=== PATIENT | female | born 1990 ===

== ENCOUNTER 2018-12-09 10:01 | Observation (INO) | payer MEDICAID ==
[2018-12-09 10:08] VITALS: BMI 26.7
--- NOTE | 2018-12-09 11:35 | ED PDOC ---
HPI: Female Pain Time Seen by Provider: 12/09/18 10:27 Chief Complaint (Nursing): Female Genitourinary Chief Complaint (Provider): Vaginal bleeding History Per: Patient History/Exam Limitations: no limitations Onset/Duration Of Symptoms: Days (3) Current Symptoms Are (Timing): Still Present Quality Of Discomfort: Cramping Additional Complaint(s): 28yo female, EGA of 8 weeks (LMP 09/11/18), comes to ER reporting vaginal bleeding x 3 days. She states initially the bleeding was mild, but today she had heavy bleeding with large clots and crampy lower abdominal pain. She had a recent US on 12/06 which indicated an IUP at 7wks5d but no heart rate; patient's Beta-HCG at that time was 97903. She denies any weakness, lightheadedness, and offers no additional complaints. PMD: [facility] OB: [facility] Abnormal Vaginal Bleeding: Yes Last Menstral Period: 09/11/18 : 5 Para: 3 Miscarriage: 1 Past Medical History Reviewed: Historical Data, Nursing Documentation, Vital Signs Vital Signs: Last Vital Signs Temp 97.2 F L 12/09/18 10:06 Pulse 86 12/09/18 10:06 Resp 18 12/09/18 10:06 BP 130/84 12/09/18 10:06 Pulse Ox 100 12/09/18 10:06 - Medical History PMH: No Chronic Diseases - Surgical History Surgical History: No Surg Hx - Family History Family History: States: No Known Family Hx - Living Arrangements Living Arrangements: With Family - Home Medications Home Medications: Ambulatory Orders Medication Instructions Recorded Multivit/Folic Acid/I 1 tab PO DAILY 12/09/18 [] - Allergies Allergies/Adverse Reactions: Allergies Allergy/AdvReac Type Severity Reaction Status Date / Time No Known Allergies Allergy Verified 08/10/16 10:51 Review of Systems ROS Statement: Except As Marked, All Systems Reviewed And Found Negative Cardiovascular: Negative for: Light Headedness Respiratory: Negative for: Shortness of Breath Gastrointestinal: Positive for: Abdominal Pain (lower abdominal pain) Genitourinary Female: Positive for: Vaginal Discharge, Vaginal Bleeding Neurological: Negative for: Dizziness Physical Exam - Reviewed Nursing Documentation Reviewed: Yes Vital Signs Reviewed: Yes - Physical Exam Appears: Positive for: Non-toxic, No Acute Distress Head Exam: Positive for: ATRAUMATIC, NORMAL INSPECTION, NORMOCEPHALIC Skin: Positive for: Normal Color, Warm, Dry. Negative for: Pallor Eye Exam: Positive for: Normal appearance, EOMI, PERRL Neck: Positive for: Normal, Supple Cardiovascular/Chest: Positive for: Regular Rate, Rhythm Respiratory: Positive for: Normal Breath Sounds. Negative for: Wheezing Gastrointestinal/Abdominal: Positive for: Normal Exam, Soft. Negative for: Tenderness Pelvic Exam: Positive for: Blood (moderate blood with large clots in vaginal vault) Back: Positive for: Normal Inspection. Negative for: L CVA Tenderness, R CVA Tenderness Extremity: Positive for: Normal ROM. Negative for: Pedal Edema Neurologic/Psych: Positive for: Alert, Oriented. Negative for: Motor/Sensory Deficits - Laboratory Results Result Diagrams: 12/09/18 13:24 12/09/18 11:30 - ECG O2 Sat by Pulse Oximetry: 100 (RA) Pulse Ox Interpretation: Normal Medical Decision Making Medical Decision Making: Impression: 8wks female with heavy vaginal bleeding; likely miscarriage Plan: -- Labs -- US abdomen 1250 AUD[employer]IS[employer] TECH called while patient at ; Dr. Hercules and myself present in room. Per US tech, patient went to the bathroom, ambulated by herself, passed a large clot and subsequently syncopized while in the bathroom. Patient given IV fluids; repeat blood pressure noted to be 107/65 HR in 80's. Repeat cbc sent. Patient noted to have hematoma on upper center forehead; CT head w/o contrast ordered. Case d/w powder worker team who will evaluate bedside. Pt. feeling better, awake, alert, HR 80s, with bp 105/65. Repeat hgb noted, 1 unit RBC ordered, consent obtained. D/w Ob, will admit pt. Pt. and comfortable with plan. Scribe Attestation: Documented by Shannon Soto acting as a scribe for CRISTO Darden Provider Attestation: All medical record entries made by the Scribe were at my direction and personally dictated by me. I have reviewed the chart and agree that the record accurately reflects my personal performance of the history, physical exam, medical decision making, and the department course for this patient. I have also personally directed, reviewed, and agree with the discharge instructions and disposition. Disposition - Clinical Impression Clinical Impression: Miscarriage, Anemia - Patient ED Disposition Is Patient to be Admitted: Yes Counseled Patient/Family Regarding: Studies Performed, Diagnosis - Disposition Disposition Time: 15:00 Condition: STABLE
[2018-12-09] MEDS: Sodium Chloride 0.9% 1,000 ML IV SCH ×2 (11:46→15:28)
[2018-12-09 11:58] LABS: BASO % 0.3 % (0.0-2.0); EOS # 0.1 K/uL (0.0-0.7); EOS % 1.1 % (0.0-4.0); HEMOGLOBIN 11.7 g/dL (12.0-16.0); LYMPH # 1.2 K/uL (1.0-4.3); LYMPH % 15.4 % (20.0-40.0); MEAN CELL VOLUME 87.9 fl (81.0-99.0); MEAN CORPUSCULAR HEMOGLOBIN 29.7 pg (27.0-31.0); MEAN CORPUSCULAR HGB CONC 33.7 g/dL (33.0-37.0); MEAN PLATELET VOLUME 8.6 fl (7.2-11.7); MONO # 0.4 K/uL (0.0-0.8); MONO % 4.7 % (0.0-10.0); NEUT # 6.3 K/uL (1.8-7.0); NEUT % 78.5 % (50.0-75.0); NRBC % 0.1 % (0.0-0.0); RBC 3.94 Mil/uL (3.80-5.20); RED CELL DISTRIBUTION WIDTH 12.8 % (11.5-14.5); WHITE BLOOD COUNT 8.1 K/uL (4.8-10.8)
[2018-12-09 12:03] LABS: ALB/GLOB RATIO 1.4 (1.0-2.1); ALBUMIN 4.7 g/dL (3.5-5.0); ALT/SGPT 25 U/L (9-52); AST/SGOT 26 U/L (14-36); BLOOD UREA NITROGEN 10 mg/dl (7-17); CALCIUM 9.8 mg/dL (8.4-10.2); GFR NON-AFRICAN AMERICAN > 60; URINE BACTERIA RARE (<OCC); URINE BILIRUBIN NEGATIVE (NEGATIVE); URINE BLOOD LARGE (NEGATIVE); URINE CLARITY CLOUDY (Clear); URINE COLOR RED (YELLOW); URINE GLUCOSE (UA) NEG (NEGATIVE); URINE LEUKOCYTE ESTERASE NEG Leu/uL (Negative); URINE PROTEIN 100 mg/dL (NEGATIVE); URINE UROBILINOGEN 0.2-1.0 mg/dL (0.2-1.0)
[2018-12-09] MEDS ORDERED: Sodium Chloride 0.9% 1,000 ML IV SCH (13:15)
[2018-12-09] MEDS ORDERED: Sodium Chloride 0.9% 1,000 ML IV ONE (13:45)
--- NOTE | 2018-12-09 13:48 | CT ---
Date of service: 12/09/2018 PROCEDURE: CT HEAD WITHOUT CONTRAST. HISTORY: head trauma COMPARISON: None available. TECHNIQUE: Axial computed tomography images were obtained through the head/brain without intravenous contrast. Supplemental Coronal and Sagittal projections created and reviewed. Radiation dose: Total exam DLP = 756.24 mGy-cm. This CT exam was performed using one or more of the following dose reduction techniques: Automated exposure control, adjustment of the mA and/or kV according to patient size, and/or use of iterative reconstruction technique. FINDINGS: HEMORRHAGE: No intracranial hemorrhage. BRAIN: No mass effect or edema. No atrophy or chronic microvascular ischemic changes. VENTRICLES: Unremarkable. No hydrocephalus. CALVARIUM: Unremarkable. PARANASAL SINUSES: Unremarkable as visualized. No significant inflammatory changes. MASTOID AIR CELLS: Unremarkable as visualized. No inflammatory changes. OTHER FINDINGS: None. IMPRESSION: No acute intracranial abnormalities. No significant findings to account for the clinical presentation.
[2018-12-09 14:07] LABS: HEMOGLOBIN 8.7 g/dL (12.0-16.0); MEAN CELL VOLUME 88.3 fl (81.0-99.0); MEAN CORPUSCULAR HEMOGLOBIN 29.1 pg (27.0-31.0); RBC 2.97 Mil/uL (3.80-5.20); RED CELL DISTRIBUTION WIDTH 12.6 % (11.5-14.5); WHITE BLOOD COUNT 13.5 K/uL (4.8-10.8)
--- NOTE | 2018-12-09 15:54 | CP.PCM.HP ---
History of Present Illness - History of Present Illness History of Present Illness: 28-year-old presents at 12.6 weeks EGA (LMP 09/11/18) with vaginal bleeding secondary to spontaneous . She began spotting 1 day prior and heavily bleeding this morning, 7 hours prior to presentation. She has had 2 previous spontaneous 1st trimester abortions before her two children (, FT, no complications). She admits to feeling weak, dizzy and fatigued but denies palpitations, nausea, and vomiting. OBGYN: Kim Sr PMH: "low bladder" as per patient Meds: PNV Allergies: denies Social: denies OBHx: 2 x 1st tri SAB followed by 3 x , FT, no complications FHx: denies labs: wnl as per patient, no results available ED Course: TVUS: no evidence of intrauterine gestation, complex cyst/mass in left adnexa bHC CBC: H/H 11.7/34.7; 8.7/26.[address] (due to syncope during U/S, [employer]): wnl Present on Admission - Present on Admission Any Indicators Present on Admission: No Review of Systems - Review of Systems Review of Systems: All other systems reviewed and negative unless noted in HPI. Past Patient History - Past Social History Smoking Status: Never Smoked - CARDIAC Hx Cardiac Disorders: No - PULMONARY Hx Respiratory Disorders: No - NEUROLOGICAL Hx Neurological Disorder: No - HEENT Hx HEENT Problems: No - RENAL Hx Chronic Kidney Disease: No - ENDOCRINE/METABOLIC Hx Endocrine Disorders: No - HEMATOLOGICAL/ONCOLOGICAL Hx Blood Disorders: No - INTEGUMENTARY Hx Dermatological Problems: No - MUSCULOSKELETAL/RHEUMATOLOGICAL Hx Musculoskeletal Disorders: No - GENITOURINARY/GYNECOLOGICAL Hx Genitourinary Disorders: No - PSYCHIATRIC Hx Psychophysiologic Disorder: No - SURGICAL HISTORY Hx Surgeries: No - ANESTHESIA Hx Anesthesia: No Meds Allergies/Adverse Reactions: Allergies Allergy/AdvReac Type Severity Reaction Status Date / Time Iodine and Iodide Containing Allergy RASH Verified 12/09/18 18:10 Produc Physical Exam - Constitutional Appears: Non-toxic, No Acute Distress - Head Exam Head Exam: NORMAL INSPECTION - Eye Exam Eye Exam: Normal appearance - ENT Exam ENT Exam: Mucous Membranes Dry - Respiratory Exam Respiratory Exam: NORMAL BREATHING PATTERN. absent: Respiratory Distress - GI/Abdominal Exam GI & Abdominal Exam: Normal Bowel Sounds, Soft. absent: Firm, Guarding - Psychiatric Exam Psychiatric exam: Normal Affect, Normal Mood - Skin Skin Exam: Dry, Intact, Pallor, Warm Results - Vital Signs Recent Vital Signs: Last Vital Signs Temp 97.2 F L 12/09/18 10:06 Pulse 86 12/09/18 13:37 Resp 20 12/09/18 13:37 BP 108/61 12/09/18 13:37 Pulse Ox 100 12/09/18 15:44 - Labs Result Diagrams: 12/09/18 13:24 12/09/18 11:30 Labs: Laboratory Results - last 24 hr 12/09/18 12/09/18 12/09/18 11:30 11:30 11:30 WBC 8.1 RBC 3.94 Hgb 11.7 L Hct 34.7 MCV 87.9 MCH 29.7 MCHC 33.7 RDW 12.8 Plt Count 261 MPV 8.6 Neut % (Auto) 78.5 H Lymph % (Auto) 15.4 L [place] % (Auto) 4.7 Eos % (Auto) 1.1 Baso % (Auto) 0.3 Neut # (Auto) 6.3 Lymph # (Auto) 1.2 [place] # (Auto) 0.4 Eos # (Auto) 0.1 Baso # (Auto) 0.0 Sodium 136 Potassium 3.4 L Chloride 98 Carbon Dioxide 23 Anion Gap 18 BUN 10 Creatinine 0.6 L Est GFR ( Amer) > 60 Est GFR (Non-Af Amer) > 60 POC Glucose (mg/dL) Random Glucose 105 Calcium 9.8 Total Bilirubin 0.5 AST 26 ALT 25 Alkaline Phosphatase 67 Total Protein 7.9 Albumin 4.7 Globulin 3.3 Albumin/Globulin Ratio 1.4 Beta HCG, Quant 17634.00 Urine Color Urine Clarity Urine pH Ur Specific [place] Urine Protein Urine Glucose (UA) Urine Ketones Urine Blood Urine Nitrate Urine Bilirubin Urine Urobilinogen Ur Leukocyte Esterase Urine RBC (Auto) Urine Microscopic WBC Urine Bacteria Blood Type A POSITIVE Blood Type Confirm Antibody Screen Negative Crossmatch See Detail BBK History Checked No verified bt 12/09/18 12/09/18 12/09/18 11:30 12:00 12:57 WBC RBC Hgb Hct MCV MCH MCHC RDW Plt Count MPV Neut % (Auto) Lymph % (Auto) [place] % (Auto) Eos % (Auto) Baso % (Auto) Neut # (Auto) Lymph # (Auto) [place] # (Auto) Eos # (Auto) Baso # (Auto) Sodium Potassium Chloride Carbon Dioxide Anion Gap BUN Creatinine Est GFR ( Amer) Est GFR (Non-Af Amer) POC Glucose (mg/dL) 131 H Random Glucose Calcium Total Bilirubin AST ALT Alkaline Phosphatase Total Protein Albumin Globulin Albumin/Globulin Ratio Beta HCG, Quant Urine Color Red Urine Clarity Cloudy Urine pH 6.0 Ur Specific [place] 1.029 Urine Protein 100 Urine Glucose (UA) Neg Urine Ketones Trace Urine Blood Large Urine Nitrate Negative Urine Bilirubin Negative Urine Urobilinogen 0.2-1.0 Ur Leukocyte Esterase Neg Urine RBC (Auto) 7303 H Urine Microscopic WBC 10 H Urine Bacteria Rare Blood Type Blood Type Confirm A POSITIVE Antibody Screen Crossmatch BBK History Checked 12/09/18 13:24 WBC 13.5 H D RBC 2.97 L Hgb 8.7 L D Hct 26.2 L MCV 88.3 MCH 29.1 MCHC 33.0 RDW 12.6 Plt Count 252 MPV Neut % (Auto) Lymph % (Auto) [place] % (Auto) Eos % (Auto) Baso % (Auto) Neut # (Auto) Lymph # (Auto) [place] # (Auto) Eos # (Auto) Baso # (Auto) Sodium Potassium Chloride Carbon Dioxide Anion Gap BUN Creatinine Est GFR ( Amer) Est GFR (Non-Af Amer) POC Glucose (mg/dL) Random Glucose Calcium Total Bilirubin AST ALT Alkaline Phosphatase Total Protein Albumin Globulin Albumin/Globulin Ratio Beta HCG, Quant Urine Color Urine Clarity Urine pH Ur Specific [place] Urine Protein Urine Glucose (UA) Urine Ketones Urine Blood Urine Nitrate Urine Bilirubin Urine Urobilinogen Ur Leukocyte Esterase Urine RBC (Auto) Urine Microscopic WBC Urine Bacteria Blood Type Blood Type Confirm Antibody Screen Crossmatch BBK History Checked Assessment & Plan - Assessment and Plan (Free Text) Assessment: 28-year-old presents at 12.6 weeks EGA (LMP 09/11/18) with vaginal bleeding secondary to spontaneous . Plan: 1. Spontaneous -Admit to tele, monitor vitals -NPO except medications -Products of conception removed manually in ED by Dr Guy -Cervix closed, no active bleeding s/p removal -1 bag PRBCs -IVF: LR @ 125 mls/hr -H/H 8.7/26.2 -f/u CBC 2 hours post-transfusion -Acetaminophen PRN for pain 2. DVT Prophylaxis -SCDs continuous, bilateral
[2018-12-09] MEDS: Lactated Ringer's 1,000 ML IV SCH (16:15)
--- NOTE | 2018-12-09 16:49 | US ---
Date of service: 12/09/2018 HISTORY: preg bleeding COMPARISON: None available. TECHNIQUE: Transvaginal only. Real -time technique with 2D, duplex and color Doppler FINDINGS: UTERUS: Measures 5.4 x 6.5 x 10.4 cm. No fibroid or other mass lesion seen. ENDOMETRIUM: Measures 13.6 mm in diameter. No ultrasound findings to suggest gestational sac, fluid, debris, mass or polyp or other pathologic process within the endometrium. CERVIX: Heterogeneous cervix obscuring the cervical canal. There may be fluid/debris within the cervix. RIGHT OVARY: Measures 1.3 x 1.4 x 2.2 cm. No solid mass. Normal flow. LEFT OVARY: Measures 2.2 x 4.1 x 1.6 cm. Well-circumscribed isoechoic mass possibly complex cyst measures 1.4 x 1.4 x 1.9 cm. Normal flow. FREE FLUID: No significant free fluid noted. OTHER FINDINGS: None. IMPRESSION: No evidence of intrauterine gestation. Complex cyst/mass in the left adnexa.
[2018-12-09 20:47] LABS: HEMOGLOBIN 9.1 g/dL (12.0-16.0); MEAN CELL VOLUME 88.9 fl (81.0-99.0); MEAN CORPUSCULAR HEMOGLOBIN 29.8 pg (27.0-31.0); MEAN CORPUSCULAR HGB CONC 33.5 g/dL (33.0-37.0); RBC 3.07 Mil/uL (3.80-5.20); RED CELL DISTRIBUTION WIDTH 12.6 % (11.5-14.5); WHITE BLOOD COUNT 7.7 K/uL (4.8-10.8)
--- NOTE | 2018-12-09 21:50 | CARD ---
APPROVED REPORT Date of service: 12/09/2018 EKG Measurement Heart [id number] <Conclusion> Normal sinus rhythm Normal ECG
[2018-12-10] VITALS: RESP 18
[2018-12-10] MEDS: Lactated Ringer's 1,000 ML IV SCH ×2 (00:28→08:28)
[2018-12-10 07:58] VITALS: O2SAT 100
--- NOTE | 2018-12-10 11:10 | CP.PCM.PN ---
Subjective - Date & Time of Evaluation Date of Evaluation: 12/10/18 Time of Evaluation: 11:06 - Subjective Subjective: Pt is a 28 yo female s/p spontaneous miscarriage with symptomatic anemia. Patient reports bleeding has improved, denies weakness, difficulty ambulating, no CP/SOB/N/V, tolerating PO diet Objective - Vital Signs/Intake and Output Vital Signs (last 24 hours): Temp Pulse Resp BP Pulse Ox 98.5 F 69 18 103/64 100 12/10/18 08:46 12/10/18 08:46 12/10/18 08:46 12/10/18 08:46 12/10/18 08:46 Intake and Output: 12/10/18 12/10/18 06:59 18:59 Intake Total 3875 Balance 3875 - Medications Medications: Current Medications Acetaminophen (Tylenol 325mg Tab) 650 mg PO Q6 PRN PRN Reason: Pain, Mild (1-3) Last Admin: 12/10/18 05:16 Dose: 650 mg Lactated Ringer's (Lactated Ringer's) 1,000 mls @ 125 mls/hr IV .Q8H CHRIS Last Admin: 12/10/18 08:28 Dose: 125 mls/hr - Labs Labs: 12/09/18 20:40 12/09/18 11:30 - Constitutional Appears: Well, No Acute Distress - Respiratory Exam Respiratory Exam: NORMAL BREATHING PATTERN - Cardiovascular Exam Cardiovascular Exam: REGULAR RHYTHM - GI/Abdominal Exam GI & Abdominal Exam: Soft, Normal Bowel Sounds - Extremities Exam Extremities Exam: Normal Inspection Assessment and Plan - Assessment and Plan (Free Text) Plan: A/P 28 yo spontaneous miscarriage and symptomatic anemia, s/p 1 PRBC 1. Patient evaluated and appears stable for discharge. VSS, pt able to ambulate and tolerate PO intake 2. DIscharge instructions reviewed with patient
[2018-12-10 12:07] VITALS: BP 108/67; PULSE 70; TEMP 98.7
== END 2018-12-10 13:00 | disposition home or self-care (01) ==
LOC: H.ER 10:01 → H.ERHOLD 14:46 → H.TEL 17:17
PROVIDERS: ADMIT Obstetrics & Gynecology; ATTEND Obstetrics & Gynecology
DX: O03.9 Complete or unspecified spontaneous abortion without complication (principal); D64.9 Anemia, unspecified
CPT/HCPCS: 36430; 70450; 76817; 80053; 81003; 82948; 84702; 85025; 85027; 86850; 86900; 86920; 93005; 96360; 96361; 99285; G0378; J7030; J7120; P9051

== ENCOUNTER 2018-12-13 14:08 | Emergency (ER) | payer MEDICAID ==
[2018-12-13 14:14] VITALS: RESP 18; O2SAT 99
[2018-12-13 15:36] LABS: BASO % 0.5 % (0.0-2.0); EOS # 0.1 K/uL (0.0-0.7); HEMOGLOBIN 9.9 g/dL (12.0-16.0); LYMPH % 20.2 % (20.0-40.0); MEAN CELL VOLUME 88.5 fl (81.0-99.0); MEAN CORPUSCULAR HEMOGLOBIN 30.7 pg (27.0-31.0); MEAN CORPUSCULAR HGB CONC 34.7 g/dL (33.0-37.0); MEAN PLATELET VOLUME 8.2 fl (7.2-11.7); MONO # 0.3 K/uL (0.0-0.8); MONO % 5.6 % (0.0-10.0); NEUT # 3.7 K/uL (1.8-7.0); NEUT % 72.7 % (50.0-75.0); NRBC % 0.1 % (0.0-0.0); RBC 3.24 Mil/uL (3.80-5.20); RED CELL DISTRIBUTION WIDTH 12.8 % (11.5-14.5); WHITE BLOOD COUNT 5.1 K/uL (4.8-10.8)
--- NOTE | 2018-12-13 15:39 | ED PDOC ---
HPI: Female Pain Time Seen by Provider: 12/13/18 14:18 Chief Complaint (Nursing): Female Genitourinary Chief Complaint (Provider): abdominal pain History Per: Patient History/Exam Limitations: no limitations Additional Complaint(s): 28 y/o F with no significant PMH who presents with abdominal pain and vaginal bleeding. Pt states that she was seen here in ED on 12/09 and diagnosed with complete spontaneous . She was admitted overnight and required blood transfusion for vaginal bleeding. She states that she went home and was doing well over the past couple of days. She has had mild cramping like a menstrual period and was having spotting. Since yesterday, however, she began having some increase in bleeding but only changing her pads a couple of times per day. She has been feeling very weak and this morning developed severe abdominal pain. She took Tylenol with minimal relief. Since being in ED, her pain has improved without intervention. Denies fever, chills, vomiting, diarrhea, dysuria. She also c/o mild nausea, dizziness and BLANKENSHIP. OF note: name for chart on 12/09 was under Cecily Menjivar. Past Medical History Reviewed: Historical Data, Nursing Documentation, Vital Signs Vital Signs: Last Vital Signs Temp Pulse 84 12/13/18 14:12 Resp 18 12/13/18 14:12 BP 124/74 12/13/18 14:12 Pulse Ox 99 12/13/18 14:12 - Medical History PMH: No Chronic Diseases - Family History Family History: States: Unknown Family Hx - Immunization History Hx Tetanus Toxoid Vaccination: No Hx Influenza Vaccination: No Hx Pneumococcal Vaccination: No - Home Medications Home Medications: Ambulatory Orders Medication Instructions Recorded Cyclobenzaprine [Cyclobenzaprine 10 mg PO TID #12 tab 01/04/18 HCl] RX: Ibuprofen [Motrin Tab] 600 mg PO Q6 #20 tab 01/04/18 Acetaminophen/Butalbital/Caf 1 tab PO Q4 PRN 7 Days tab 12/13/18 [Fioricet] RX: Ibuprofen [Motrin Tab] 800 mg PO Q6 PRN 7 Days tab 12/13/18 - Allergies Allergies/Adverse Reactions: Allergies Allergy/AdvReac Type Severity Reaction Status Date / Time seafood Allergy RASH Uncoded 01/04/18 10:08 Review of Systems Constitutional: Negative for: Fever, Chills Gastrointestinal: Positive for: Nausea, Abdominal Pain. Negative for: Vomiting, Diarrhea Genitourinary Female: Negative for: Dysuria, Frequency Neurological: Positive for: Headache, Dizziness. Negative for: Weakness, Numbness, Change in Speech, Confusion Physical Exam - Reviewed Nursing Documentation Reviewed: Yes Vital Signs Reviewed: Yes - Physical Exam Appears: Positive for: Uncomfortable Head Exam: Negative for: ATRAUMATIC (healing ecchymosis in center of forehead) Eye Exam: Positive for: Normal appearance, EOMI, PERRL ENT: Positive for: Normal ENT Inspection Neck: Positive for: Normal, Painless ROM Cardiovascular/Chest: Positive for: Regular Rate, Rhythm Respiratory: Positive for: Normal Breath Sounds Gastrointestinal/Abdominal: Positive for: Tenderness Pelvic Exam: Positive for: Active Bleeding (dark blood), Tender Adnexa (Right), Other (exam performed in the presence of CALEB Gonzalez). Negative for: Speculum Exam Normal (dark blood noted in vaginal vault, unable to visualize cervix as patient extremely uncomfortable even when proceeding slowly and refused to continue with exam), Mass, Tender W/Cervical Motion, Tender Uterus Neurologic/Psych: Positive for: Alert, Oriented - Laboratory Results Result Diagrams: 12/13/18 15:15 12/13/18 15:15 - ECG O2 Sat by Pulse Oximetry: 99 Medical Decision Making Medical Decision Making: CBC,BMP, Type and screen Transvaginal U/S U/A, urine culture Beta HCG Beta HCG 1335 (decreasing from 1500s on 12/09) and HgB 9.9 (improved from 12/09). Transvaginal U/S: FINDINGS: UTERUS: Measures 4.9 x 5.9 x 8.0 cm. Normal in size and appearance. No fibroid or other mass lesion seen. ENDOMETRIUM: Measures 11.4 mm in diameter. No ultrasound findings to suggest gestational sac, fluid, debris, mass or polyp or other pathologic process within the endometrium. CERVIX: No cervical abnormality identified. RIGHT OVARY: Measures 1.3 x 2.5 x 2.5 cm. No solid mass. Normal flow. LEFT OVARY: Measures 2.3 x 1.5 x 3.0 cm. Complex likely hemorrhagic cyst 1.5 x 1.2 x 1.1 cm normal flow. FREE FLUID: No significant free fluid noted. OTHER FINDINGS: Complex likely hemorrhagic fluid in the cul-de-sac IMPRESSION: Endometrial hypertrophy. No visible intrauterine products of conception. A Complex cyst left adnexa. 17:28: re-evaluated, abdominal pain has improved significantly but still has mild pain. She states that she has a migraine since hitting her head after syncopal episode while hospitalized on 12/09 that is not improving with Tylenol but has not taken Ibuprofen. She had a head CT that ruled out bleed after her fall. Toradol 30mg IV x 1, Reglan 10mg IV x 1, NS 1L IV X 1. 19:30: abdominal pain and BLANKENSHIP much improved, she no longer has nausea. She has eaten and overall feels much better. Pt advised to follow-up with her red lead burner tomorrow as already arranged and to see her PMD for further evaluation of headache if it persists. Advised to return to ED if she has worsening abdominal pain, bleeding, dizziness or shortness of breath. Disposition - Clinical Impression Clinical Impression: Complete miscarriage, Vaginal bleeding problems - Patient ED Disposition Is Patient to be Admitted: No Counseled Patient/Family Regarding: Studies Performed, Diagnosis, Need For Fo llowup, Rx Given - Disposition Referrals: [facility] [Outside] [facility] [Outside] Disposition: Routine/Home Disposition Time: 20:25 Condition: STABLE Additional Instructions: Follow-up with your red lead burner tomorrow as scheduled. Take Tylenol or Ibuprofen for pain. Take Fioricet for migraine Headache. Return to ER if you begin to have heavy vaginal bleeding, feel faint or have worsening headache that does not improve with pain medications. Follow-up with your primary care doctor for further evaluation of headaches. Prescriptions: Acetaminophen/Butalbital/Caf [Fioricet] 1 tab PO Q4 PRN 7 Days tab PRN Reason: Headache RX: Ibuprofen [Motrin Tab] 800 mg PO Q6 PRN 7 Days tab PRN Reason: Pain, Moderate (4-7) Instructions: Miscarriage (DC) Forms: [employer] (Pashto) Print Language: GREEK
[2018-12-13 15:57] LABS: BLOOD UREA NITROGEN 13 mg/dl (7-17); CALCIUM 10.2 mg/dL (8.4-10.2); GFR NON-AFRICAN AMERICAN > 60
[2018-12-13 16:09] LABS: SQUAMOUS EPITHIAL 1 /hpf (0-5); URINE BACTERIA RARE (<OCC); URINE BILIRUBIN NEGATIVE (NEGATIVE); URINE BLOOD LARGE (NEGATIVE); URINE CLARITY CLEAR (Clear); URINE COLOR STRAW (YELLOW); URINE GLUCOSE (UA) NEG (NEGATIVE); URINE LEUKOCYTE ESTERASE NEG Leu/uL (Negative); URINE PROTEIN NEGATIVE (NEGATIVE); URINE UROBILINOGEN 0.2-1.0 mg/dL (0.2-1.0)
--- NOTE | 2018-12-13 16:43 | US ---
Date of service: 12/13/2018 HISTORY: s/p spontaneous 12/07, severe abd pain. LMP 09/15/2018 COMPARISON: None available. TECHNIQUE: Transvaginal only. Real -time technique with 2D, duplex and color Doppler FINDINGS: UTERUS: Measures 4.9 x 5.9 x 8.0 cm. Normal in size and appearance. No fibroid or other mass lesion seen. ENDOMETRIUM: Measures 11.4 mm in diameter. No ultrasound findings to suggest gestational sac, fluid, debris, mass or polyp or other pathologic process within the endometrium. CERVIX: No cervical abnormality identified. RIGHT OVARY: Measures 1.3 x 2.5 x 2.5 cm. No solid mass. Normal flow. LEFT OVARY: Measures 2.3 x 1.5 x 3.0 cm. Complex likely hemorrhagic cyst 1.5 x 1.2 x 1.1 cm normal flow. FREE FLUID: No significant free fluid noted. OTHER FINDINGS: Complex likely hemorrhagic fluid in the cul-de-sac IMPRESSION: Endometrial hypertrophy. No visible intrauterine products of conception. A Complex cyst left adnexa.
[2018-12-13] MEDS ORDERED: Sodium Chloride 0.9% 1,000 ML IV STA (17:26)
[2018-12-13 20:55] VITALS: BP 131/60; PULSE 76; TEMP 98.4
== END 2018-12-13 20:55 | disposition home or self-care (01) ==
LOC: H.ER 14:08 → MERGE 14:08 → H.ER 20:55
DX: O03.9 Complete or unspecified spontaneous abortion without complication (principal)
CPT/HCPCS: 76830; 80048; 81003; 84702; 85025; 86850; 86900; 87086; 96374; 96375; 99283; J1885; J2765; J7030